=== PATIENT | male | born 1990 | race African-American/Black ===

== ENCOUNTER 2018-12-24 23:54 | Emergency (ER) | payer OTHER ==
[~2018-12-24] VITALS: Ht 182.9 cm; Wt 68.0 kg
[2018-12-25] MEDS ORDERED: MAGNESIUM/ALUMINUM HYDROXIDE/SIMETHICONE 30ML UDC PO STA (01:07)
[2018-12-25] MEDS ORDERED: VISCOUS LIDOCAINE 2% 15 ML UDC PO STA (01:07)
[2018-12-25] MEDS ORDERED: HALOPERIDOL LACTATE 5MG/ML VIAL IM ONE (01:15)
[2018-12-25 01:24] LABS: BASOPHILS % 0.6 % (0.0-2.0); EOSINOPHILS % 0.1 % (0.0-5.0); HEMATOCRIT. 39.6 % (42.0-52.0); HEMOGLOBIN. 12.8 g/dL (14.0-18.0); LYMPHOCYTES % 13.7 % (20.0-50.0); MEAN CORPUSCULAR HEMOGLOBIN 21.7 pg (28.0-32.0); MEAN CORPUSCULAR VOLUME 67.2 fL (80.0-94.0); MONOCYTES % 9.2 % (2.0-8.0); NEUTROPHILS % 76.4 % (40.0-76.0); PLATELET 342 x1000/uL (130-400); RED BLOOD CELL COUNT 5.88 mill/uL (4.7-6.1); RED CELL DISTRIBUTION WIDTH 16.9 % (11.6-14.6)
[2018-12-25 01:33] LABS: CHLORIDE 88 mEq/L (98-107); PLATELET ESTIMATE NORMAL
[2018-12-25 01:36] LABS: ETHANOL BLOOD < 10 mg/dL
[2018-12-25 02:41] LABS: CLARITY URINE CLEAR (CLEAR); COLOR URINE YELLOW (YELLOW); KETONES URINE 1+ (NEGATIVE); LEUKOCYTE ESTERASE URINE NEGATIVE (NEGATIVE); NITRITE URINE NEGATIVE (NEGATIVE); OCCULT BLOOD URINE NEGATIVE (NEGATIVE); PH URINE >=9.0 (4.5-8.0); PROTEIN URINE 1+ (NEGATIVE); SPECIFIC GRAVITY URINE 1.023 (1.005-1.030)
[2018-12-25 03:21] VITALS: BP 144/113
== END 2018-12-25 03:22 | disposition home or self-care (01) ==
LOC: ER 23:54
DX: K29.70 Gastritis, unspecified, without bleeding (principal); F12.188 Cannabis abuse with other cannabis-induced disorder; F17.200 Nicotine dependence, unspecified, uncomplicated; F12.10 Cannabis abuse, uncomplicated; K21.9 Gastro-esophageal reflux disease without esophagitis
CPT/HCPCS: 36415; 80053; 80320; 81003; 83690; 85025; 99283; Z7610; G0480

== ENCOUNTER 2019-07-15 05:25 | Emergency (ER) | payer OTHER ==
[~2019-07-15] VITALS: Ht 170.2 cm; Wt 70.0 kg
[2019-07-15] MEDS ORDERED: MAGNESIUM/ALUMINUM HYDROXIDE/SIMETHICONE 30ML UDC PO STA (05:57)
[2019-07-15 06:20] LABS: BASOPHILS % 0.4 % (0.0-2.0); EOSINOPHILS % 1.9 % (0.0-5.0); HEMOGLOBIN. 11.5 g/dL (14.0-18.0); LYMPHOCYTES % 22.5 % (20.0-50.0); MEAN CORPUSCULAR HEMOGLOBIN 24.9 pg (28.0-32.0); MEAN PLATELET VOLUME 7.9 fl (7.4-10.4); MONOCYTES % 9.3 % (2.0-8.0); NEUTROPHILS % 65.9 % (40.0-76.0); PLATELET 303 x1000/uL (130-400); RED BLOOD CELL COUNT 4.61 mill/uL (4.7-6.1); RED CELL DISTRIBUTION WIDTH 18.8 % (11.6-14.6)
[2019-07-15 06:25] LABS: CHLORIDE 102 mEq/L (98-107)
[2019-07-15 06:28] LABS: PROTHROMBIN TIME 10.8 sec (9.6-11.0)
[2019-07-15 07:42] VITALS: BP 124/89
== END 2019-07-15 09:43 | disposition home or self-care (01) ==
LOC: ER 05:25
DX: R10.13 Epigastric pain (principal); K21.9 Gastro-esophageal reflux disease without esophagitis; F17.210 Nicotine dependence, cigarettes, uncomplicated; Z87.19 Personal history of other diseases of the digestive system
CPT/HCPCS: 36415; 71045; 80053; 85025; 99284

== ENCOUNTER 2020-02-11 02:55 | Emergency (ER) | payer OTHER ==
[~2020-02-11] VITALS: Ht 182.9 cm; Wt 80.0 kg
[2020-02-11 02:57] VITALS: BP 118/86
[2020-02-11] MEDS ORDERED: CEFAZOLIN 1000MG PREMIX 50 ML IV ONE (04:45)
[2020-02-11] MEDS ORDERED: LIDOCAINE HCL/PF 1% 10 MG/ML 5ML VIAL IJ ONE (04:45)
[2020-02-11] MEDS ORDERED: TETANUS, DIPHTHERIA, PERTUSSIS VAC/PF 0.5ML (>7YR OLD) IM ONE (04:45)
[2020-02-11] MEDS ORDERED: CEFAZOLIN SODIUM 1000MG/VIAL IM ONE (05:14)
== END 2020-02-11 06:35 | disposition home or self-care (01) ==
LOC: ER 02:55
DX: S63.29 Dislocation of distal interphalangeal joint of finger (principal); Q74.1 Congenital malformation of knee; Z98.890 Other specified postprocedural states; Y04.0XXA Assault by unarmed brawl or fight, initial encounter; Y93.89 Activity, other specified; Y92.89 Other specified places as the place of occurrence of the external cause; Y99.8 Other external cause status
CPT/HCPCS: 26770; 73130; 73562; 73610; 90471; 90715; 96372; 99284; J0690; J3490; L1830; 12001

== ENCOUNTER 2022-02-11 19:45 | Emergency (ER) | payer OTHER ==
[~2022-02-11] VITALS: Ht 167.6 cm; Wt 64.0 kg
[2022-02-11] MEDS ORDERED: ONDANSETRON 4MG ODT PO STA (21:16)
[2022-02-11] MEDS ORDERED: MAGNESIUM/ALUMINUM HYDROXIDE/SIMETHICONE 30ML UDC PO STA (21:16)
[2022-02-11 21:42] LABS: BASOPHILS % 0.6 % (0.0-2.0); EOSINOPHILS % 1.4 % (0.0-5.0); HEMATOCRIT. 49.2 % (42.0-52.0); LYMPHOCYTES % 18.9 % (20.0-50.0); MEAN CORPUSCULAR HEMOGLOBIN 27.1 pg (28.0-32.0); MEAN CORPUSCULAR VOLUME 83.1 fL (80.0-94.0); MEAN PLATELET VOLUME 8.3 fl (7.4-10.4); MONOCYTES % 9.9 % (2.0-8.0); NEUTROPHILS % 69.2 % (40.0-76.0); PLATELET 304 x1000/uL (130-400); RED BLOOD CELL COUNT 5.92 mill/uL (4.7-6.1); RED CELL DISTRIBUTION WIDTH 14.8 % (11.6-14.6)
[2022-02-11 21:49] LABS: CHLORIDE 89 mEq/L (98-107)
[2022-02-11 21:57] LABS: ETHANOL BLOOD < 10 mg/dL
[2022-02-11 23:46] LABS: CLARITY URINE CLEAR (CLEAR); COLOR URINE YELLOW (YELLOW); KETONES URINE TRACE (NEGATIVE); LEUKOCYTE ESTERASE URINE TRACE (NEGATIVE); NITRITE URINE NEGATIVE (NEGATIVE); OCCULT BLOOD URINE NEGATIVE (NEGATIVE); PH URINE 5.5 (4.5-8.0); PROTEIN URINE NEGATIVE (NEGATIVE); SPECIFIC GRAVITY URINE 1.026 (1.005-1.030)
[2022-02-12 00:01] LABS: *AMPHETAMINES SCREEN URINE PRESUMTIVE POSITIVE (NEGATIVE); *BARBITURATES SCREEN URINE NEGATIVE (NEGATIVE); *BENZODIAZEPINES SCREEN URINE NEGATIVE (NEGATIVE); *COCAINE SCREEN URINE NEGATIVE (NEGATIVE); CANNABINOID URINE SCREEN PRESUMTIVE POSITIVE (NEGATIVE); METHADONE URINE SCREEN NEGATIVE (NEGATIVE); OPIATES URINE SCREEN NEGATIVE (NEGATIVE); PHENCYCLIDINE URINE SCREEN NEGATIVE (NEGATIVE)
[2022-02-12] MEDS ORDERED: ONDA4TAB50 MT (00:30)
[2022-02-12 00:45] VITALS: BP 120/81
== END 2022-02-12 00:58 | disposition home or self-care (01) ==
LOC: ER 19:45
DX: T43.621A Poisoning by amphetamines, accidental (unintentional), initial encounter (principal); R10.13 Epigastric pain; R11.2 Nausea with vomiting, unspecified; Y92.89 Other specified places as the place of occurrence of the external cause
CPT/HCPCS: 36415; 74176; 80053; 80305; 80320; 81003; 83690; 85025; 99284; Q0162; G0480

== ENCOUNTER 2022-03-08 12:24 | Emergency (ER) | payer OTHER ==
[~2022-03-08] VITALS: Ht 182.9 cm; Wt 79.0 kg
[~2022-03-08 12:24] MED LIST: ONDA4TAB50 MT
[2022-03-08 12:25] VITALS: BP 144/97
[2022-03-08] MEDS ORDERED: ONDANSETRON HCL 4MG/2ML INJ IV STA (12:52)
[2022-03-08] MEDS ORDERED: SODIUM CHLORIDE 0.9% 1,000 ML IV ONE (13:00)
[2022-03-08 14:24] LABS: BASOPHILS % 0.7 % (0.0-2.0); EOSINOPHILS % 1.2 % (0.0-5.0); HEMATOCRIT. 42.4 % (42.0-52.0); HEMOGLOBIN. 13.9 g/dL (14.0-18.0); LYMPHOCYTES % 12.3 % (20.0-50.0); MEAN CORPUSCULAR HEMOGLOBIN 27.3 pg (28.0-32.0); MEAN PLATELET VOLUME 7.8 fl (7.4-10.4); MONOCYTES % 4.1 % (2.0-8.0); NEUTROPHILS % 81.7 % (40.0-76.0); PLATELET 482 x1000/uL (130-400); RED BLOOD CELL COUNT 5.11 mill/uL (4.7-6.1); RED CELL DISTRIBUTION WIDTH 15.1 % (11.6-14.6)
[2022-03-08 14:26] LABS: CHLORIDE 99 mEq/L (98-107)
[2022-03-08 14:34] LABS: ETHANOL BLOOD < 10 mg/dL
[2022-03-08] MEDS ORDERED: ONDA4TAB11 PO (15:21)
[2022-03-08] MEDS ORDERED: LOPE2CAP MT (15:21)
[2022-03-08] MEDS ORDERED: OMEP10CA5 MT (15:21)
== END 2022-03-08 16:20 | disposition home or self-care (01) ==
LOC: ER 12:24
DX: R19.7 Diarrhea, unspecified (principal); Z98.890 Other specified postprocedural states
CPT/HCPCS: 36415; 80053; 80320; 83690; 85025; 96361; 96374; 99283; J2405; J7030; G0480

== ENCOUNTER 2023-03-23 12:43 | Emergency (ER) | payer OTHER ==
[~2023-03-23] VITALS: Ht 177.8 cm; Wt 80.0 kg
[~2023-03-23 12:43] MED LIST changes: +LOPE2CAP MT; +OMEP10CA5 MT; +ONDA4TAB11 PO
[2023-03-23 12:48] VITALS: O2SAT 100
[2023-03-23] MEDS ORDERED: PANTOPRAZOLE SODIUM 40 MG/VIAL IV STA (12:51)
[2023-03-23] MEDS ORDERED: MAGNESIUM/ALUMINUM HYDROXIDE/SIMETHICONE 30ML UDC PO STA (12:51)
[2023-03-23] MEDS ORDERED: ONDANSETRON 4MG ODT PO STA (12:51)
[2023-03-23 14:19] LABS: BASOPHILS % 0.8 % (0.0-2.0); EOSINOPHILS % 0.9 % (0.0-5.0); HEMOGLOBIN. 14.2 g/dL (14.0-18.0); LYMPHOCYTES % 14.2 % (20.0-50.0); MEAN CORPUSCULAR HEMOGLOBIN 21.5 pg (28.0-32.0); MEAN CORPUSCULAR VOLUME 69.4 fL (80.0-94.0); MEAN PLATELET VOLUME 8.3 fl (7.4-10.4); NEUTROPHILS % 75.1 % (40.0-76.0); PLATELET 402 x1000/uL (130-400); RED BLOOD CELL COUNT 6.63 mill/uL (4.7-6.1); RED CELL DISTRIBUTION WIDTH 20.1 % (11.6-14.6); WHITE BLOOD COUNT 11.6 x1000/uL (4.5-11.0)
[2023-03-23 14:21] LABS: ADD RBC MORPHOLOGY YES; DIFFERENTIAL COMMENT 1
[2023-03-23 14:32] LABS: PARTIAL THROMBOPLASTIN TIME 28.2 sec (23.4-31.0); PROTHROMBIN TIME 10.9 sec (9.6-11.0)
[2023-03-23 14:43] LABS: ALANINE AMINOTRANSFERASE 10 IU/L (10-49); ALBUMIN 4.7 g/dL (3.2-4.8); ASPARTATE AMINOTRANSFERASE 15 IU/L (<34); BILIRUBIN TOTAL 0.8 mg/dL (0.1-1.0); CALCIUM 10.5 mg/dL (8.7-10.4); CHLORIDE 82 mEq/L (98-107); CREATININE 1.4 mg/dL (0.6-1.3); GLUCOSE 96 mg/dL (70-105); POTASSIUM 3.8 mEq/L (3.5-5.1); SODIUM 130 mEq/L (136-145); UREA NITROGEN BLOOD 25 mg/dL (9-23)
[2023-03-23] MEDS ORDERED: ONDANSETRON 4MG ODT PO NR (14:45)
[2023-03-23] MEDS ORDERED: MAGNESIUM/ALUMINUM HYDROXIDE/SIMETHICONE 30ML UDC PO NR (14:45)
[2023-03-23] MEDS ORDERED: PANTOPRAZOLE SODIUM 40 MG/VIAL IV NR (14:45)
[2023-03-23 15:04] LABS: ETHANOL BLOOD < 10 mg/dL (<10)
[2023-03-23 15:09] LABS: CARBON DIOXIDE > 40 mEq/L (21-32)
[2023-03-23] MEDS ORDERED: SODIUM CHLORIDE 0.9% 1,000 ML IV ONE (15:45)
[2023-03-23 15:58] LABS: BG BASE EXCESS 12.5 mmol/L (-2.0-2.0); BG CARBOXYHEMOGLOBIN 1.1 % (0.5-1.5); BG DEOXYHEMOGLOBIN 1.7 % (0.0-5.0); BG HCO3 ACT 36.1 mmol/L (22.0-26.0); BG METHEMOGLOBIN 0.2 % (0.0-1.5); BG OXYGEN SATURATION 98.3 % (92.0-98.5); BG PCO2 41.7 mmHg (35.0-45.0); BG PH 7.555 (7.350-7.450); BG PO2 98.4 mmHg (75.0-100.0); BG SAMPLE SITE RIGHT BRACHIAL; BG TOTAL HEMOGLOBIN 15.4 g/dL (12.0-18.0); BG VENT MODE ROOM AIR
[2023-03-23 16:58] LABS: LACTIC ACID 2.3 mmol/L (0.4-2.0)
[2023-03-23 17:44] LABS: ANISOCYTOSIS 2+; MICROCYTOSIS 3+; PLATELET ESTIMATE SLIGHTLY INCREASED
[2023-03-23 17:45] LABS: GIANT PLATELETS FEW; HYPOCHROMASIA 1+
[2023-03-23 17:46] LABS: STOMATOCYTES 1+
[2023-03-23 21:19] VITALS: BP 109/80; PULSE 75; RESP 18; TEMP 98.6
[2023-03-23 21:57] LABS: *AMPHETAMINES SCREEN URINE NEGATIVE (NEGATIVE); *BARBITURATES SCREEN URINE NEGATIVE (NEGATIVE); *BENZODIAZEPINES SCREEN URINE NEGATIVE (NEGATIVE); *COCAINE SCREEN URINE NEGATIVE (NEGATIVE); CANNABINOID URINE SCREEN PRESUMPTIVE POSITIVE (NEGATIVE); ECSTASY MDMA SCREEN URINE NEGATIVE (NEGATIVE); METHADONE URINE SCREEN Neg (NEGATIVE); OPIATES URINE SCREEN NEGATIVE (NEGATIVE); PHENCYCLIDINE URINE SCREEN NEGATIVE (NEGATIVE)
== END 2023-03-23 21:27 ==
LOC: ER 12:51 → CANBEDREQ 03-25 10:16
DX: K20.90 Esophagitis, unspecified without bleeding (principal); F10.20 Alcohol dependence, uncomplicated; E87.3 Alkalosis; E87.8 Other disorders of electrolyte and fluid balance, not elsewhere classified; E86.0 Dehydration; R11.2 Nausea with vomiting, unspecified; Y90.0 Blood alcohol level of less than 20 mg/100 ml
CPT/HCPCS: 80053; 80305; 80320; 83605; 83690; 83930; 85025; 85610; 85730; 86850; 86900; 86901; 36415; 74177; 82805; 82375; 96361; 96374; 99291; 36600; Q0162; C9113; J7030; Z7610 ×2; G0480

== ENCOUNTER 2023-04-22 19:46 | Emergency (ER) | payer MEDICAID, OTHER ==
[~2023-04-22] VITALS: Ht 185.4 cm; Wt 71.0 kg
[2023-04-22 19:53] VITALS: BP 154/107; PULSE 95; RESP 18; TEMP 97.5; O2SAT 100
[2023-04-22] MEDS ORDERED: MAGNESIUM/ALUMINUM HYDROXIDE/SIMETHICONE 30ML UDC PO ONE (21:15)
[2023-04-22] MEDS ORDERED: HALOPERIDOL LACTATE 5MG/ML VIAL IM ONE (21:15)
[2023-04-22] MEDS ORDERED: ONDA8TAB13 MT (22:04)
[2023-04-22] MEDS ORDERED: FAMO40TA70 MT (22:05)
[2023-04-22] MEDS ORDERED: BENZ100C86 MT (22:06)
== END 2023-04-22 22:40 | disposition home or self-care (01) ==
LOC: ER 19:46
DX: K29.70 Gastritis, unspecified, without bleeding (principal); J06.9 Acute upper respiratory infection, unspecified; F31.9 Bipolar disorder, unspecified
CPT/HCPCS: 71045; 99283

== ENCOUNTER 2023-04-27 23:11 | Emergency (ER) | payer MEDICAID ==
[~2023-04-27] VITALS: Ht 182.9 cm; Wt 73.0 kg
[~2023-04-27 23:11] MED LIST changes: +BENZ100C86 MT; +FAMO40TA70 MT; +ONDA8TAB13 MT
[2023-04-27 23:32] VITALS: O2SAT 99
[2023-04-28] MEDS ORDERED: FAMOTIDINE 20MG TABLET PO ONE (04:30)
[2023-04-28] MEDS ORDERED: ONDANSETRON 4MG ODT PO ONE (04:30)
[2023-04-28] MEDS ORDERED: BENZ100C86 MT (04:35)
[2023-04-28] MEDS ORDERED: FAMO40TA70 MT (04:35)
[2023-04-28] MEDS ORDERED: ONDA4TAB11 PO (04:35)
[2023-04-28 05:15] VITALS: BP 129/71; PULSE 80; RESP 15; TEMP 98.1
== END 2023-04-28 05:35 | disposition home or self-care (01) ==
LOC: ER 23:11
DX: K29.70 Gastritis, unspecified, without bleeding (principal); R11.0 Nausea
CPT/HCPCS: 99283; Q0162